=== PATIENT | male | born 1980 | race Caucasian/White ===

== ENCOUNTER 2019-07-23 02:22 | Emergency (ER) | payer BC ==
[2019-07-23 02:29] VITALS: BP 138/83
[2019-07-23] MEDS ORDERED: cefTRIAXone 1 GM VIAL IM STA (02:41)
[2019-07-23] MEDS ORDERED: DEXAMETHASONE 10 MG/ML VIAL PO STA (02:41)
[2019-07-23] MEDS ORDERED: CHERRY SYRUP 10 ML UDC PO ONE (02:41)
[2019-07-23] MEDS ORDERED: LIDOCAINE 1% 2 ML VIAL MC ONE (02:41)
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
[2019-07-23] MEDS ORDERED: ACETAMINOPHEN 325 MG TABLET PO STA (02:54)
== END 2019-07-23 03:13 | disposition home or self-care (01) ==
LOC: ED 02:22
DX: H66.002 Acute suppurative otitis media without spontaneous rupture of ear drum, left ear (principal); R00.0 Tachycardia, unspecified
CPT/HCPCS: 96372; 99281; 99283; A9270